=== PATIENT | female | born 1985 | race Caucasian/White ===

== ENCOUNTER 2017-03-26 21:10 | Emergency (ER) | payer BC, OTHER ==
--- NOTE | 2017-03-26 21:58 | ERPHSYRPT ---
- History of Present Illness Time Seen by Provider: 03/26/17 21:40 Source: patient Exam Limitations: clinical condition Patient Subjective Stated Complaint: abdominal cramping x 1 week intermittently. has had hx urinary problems. denies fever Triage Nursing Assessment: alert and oriented. no acute distress. abdomen soft.. states pain in lower abdomen that radiates to back. denies vaginal bleeding Physician History: PATIENT IS A -5, PARA-3, -1, LMP 12/29/2016, AT 12 WEEKS GESTATION COMPLAINS OF LOWER ABDOMINAL CRAMPING FOR 1 WEEK, DENIES VAGINAL BLEEDING OR PASSAGE OF TISSUE. DENIES DYSURIA, URGENCY OR HEMATURIA. Timing/Duration: week(s) Activites at Onset: none Quality: cramping Onset Location: pelvic pain Pain Radiation: none Severity of Pain-Max: mild Severity of Pain-Current: mild Prior abdominal problems: other (MISCARRIAGE) Sexual intercourse history: non-contributory Modifying Factors: Improves With: nothing Associated Symptoms: denies symptoms Allergies/Adverse Reactions: No Known Drug Allergies Allergy (Unverified 03/26/17 21:40) Home Medications: Vits W-Ca,Fe,FA(<1Mg) [] 1 each PO DAILY 03/26/17 [History] - Review of Systems Constitutional: No Fever, No Chills Eyes: No Symptoms Ears, Nose, & Throat: No Symptoms Respiratory: No Symptoms, No Cough, No Dyspnea Cardiac: No Symptoms, No Chest Pain, No Edema, No Syncope Abdominal/Gastrointestinal: Abdominal Pain, No Nausea, No Vomiting, No Diarrhea Genitourinary Symptoms: , No Dysuria Musculoskeletal: No Back Pain, No Neck Pain Skin: No Rash Neurological: No Dizziness, No Focal Weakness, No Sensory Changes Psychological: No Symptoms Endocrine: No Symptoms All Other Systems: Reviewed and Negative - Past Medical History Pertinent Past Medical History: Yes Female Reproductive Disorders: Other Other Medical History: lyme disease, loss at 5 months - Past Surgical History Past Surgical History: No - Social History Smoking Status: Never smoker Exposure to second hand smoke: No Drug Use: none Patient Lives Alone: No - Female History Hx Last Menstrual Period: december Hx Now: Yes Gestational Age: 12 weeks - Nursing Vital Signs Nursing Vital Signs: Initial Vital Signs Temperature 97.8 F 03/26/17 21:24 Pulse Rate 79 03/26/17 21:24 Respiratory Rate 18 03/26/17 21:24 Blood Pressure 112/72 03/26/17 21:24 O2 Sat by Pulse Oximetry 98 03/26/17 21:24 Pain Scale Pain Intensity 0 - Physical Exam General Appearance: no apparent distress, alert Eye Exam: PERRL/EOMI, eyes nml inspection Ears, Nose, Throat Exam: normal ENT inspection, TMs normal, pharynx normal, moist mucous membranes Neck Exam: normal inspection, non-tender, supple, full range of motion Respiratory Exam: normal breath sounds, lungs clear, No respiratory distress Cardiovascular Exam: regular rate/rhythm, normal heart sounds, normal peripheral pulses Gastrointestinal/Abdomen Exam: soft, normal bowel sounds (NONTENDER), No tenderness, No mass Pelvic Exam: normal external exam, other (UTERINE SIZE 11-12 WEEKS GESTATION) Back Exam: normal inspection, normal range of motion, No CVA tenderness, No vertebral tenderness Extremity Exam: normal inspection, normal range of motion, pelvis stable Neurologic Exam: alert, oriented x 3, cooperative, 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 tested, normal mood/affect, sensation nml, No motor deficits Skin Exam: normal color, warm, dry Lymphatic Exam: No adenopathy SpO2: 98 Oxygen Delivery: Room Air - Radiology Ultrasound Exam OB Ultrasound: discussed w/radiologist (INTRAUTERINE 12 WEEKS 2 DAYS, FHT 162) Ordered Tests: Active Orders 24 hr Category Date Time Status OB <14 WKS 1ST GESTATION [US] Stat Exams 03/26/17 21:59 Ordered HCG,QUALITATIVE URINE Stat Lab 03/26/17 21:45 Completed UA W/RFX UR CULTURE Stat Lab 03/26/17 21:45 Completed Lab/Rad Data: Laboratory Results 03/26/17 03/26/17 Range/Units 21:45 21:45 Ur Collection Type CLEAN CATCH Urine Color LT.YELLOW (YELLOW) Urine Appearance CLEAR (CLEAR) Urine pH 8.0 (5-6) Ur Specific [place] 1.010 (1.005-1.025) Urine Protein NEGATIVE (Negative) Urine Ketones NEGATIVE (NEGATIVE) Urine Blood NEGATIVE (0-5) Jose/ul Urine Nitrite NEGATIVE (NEGATIVE) Urine Bilirubin NEGATIVE (NEGATIVE) Urine Urobilinogen NORMAL (0-1) mg/dL Ur Leukocyte Esterase NEGATIVE (NEGATIVE) Urine Culture Reflexed NO (NO) Urine Glucose NEGATIVE (NEGATIVE) mg/dL Urine HCG, Qual POSITIVE (Negative) Specimen Received 03/26/17 3934 - Progress Counseled pt/family regarding: lab results, diagnosis, need for follow-up - Departure Time of Disposition: 00:35 Departure Disposition: Home Clinical Impression: , PELVIC PAIN Condition: Stable Critical Care Time: No Referrals: SHEA JIMENEZ NP [Primary Care Provider] - Additional Instructions: 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 TYLENOL EVERY 4 HOUR NEEDED FOR PAIN. RETURN TO EMERGENCY FOR ONSET OF VAGINAL BLEEDING OR INCREASING PAIN.
[2017-03-26 22:03] LABS: Appearance CLEAR (CLEAR); Glucose NEGATIVE (NEGATIVE); Leukocyte Esterase NEGATIVE (NEGATIVE); Nitrite NEGATIVE (NEGATIVE)
[2017-03-26 22:04] LABS: Bilirubin NEGATIVE (NEGATIVE); Blood NEGATIVE Ery/ul (0-5); Ketones NEGATIVE (NEGATIVE); Protein,Urine Dip NEGATIVE (Negative); Urobilinogen NORMAL mg/dL (0-1)
[2017-03-26 22:33] VITALS: PULSE 76
[2017-03-27 00:31] VITALS: O2SAT 98
[2017-03-27 00:35] VITALS: BP 116/82
--- NOTE | 2017-03-27 07:49 | XRAY ---
Indication: Cramping. History of miscarriage. Two-dimensional transabdominal early OB ultrasound was performed. Comparison: None There is a single viable intrauterine with mean crown-rump length measuring 5.78 cm corresponding to 12 weeks 2 days. heart rate 165 BPM. Posterior placenta is low lying. No abnormal subchorionic fluid collection. Cervical length measures 4.4 cm. 2.9 cm right ovary corpus luteal cyst. Remaining left and right ovaries unremarkable. No suspicious adnexal mass or free fluid. Impression: Single viable intrauterine measuring 12 weeks 2 days. Expected date confinement is October 06, 2017. Low-lying posterior placenta not unusual for early gestational age. Recommend follow-up later in the . Comment: Preliminary report was given.
== END 2017-03-27 00:41 | disposition home or self-care (01) ==
LOC: ED 21:10
DX: O26.891 Other specified pregnancy related conditions, first trimester (principal); Z3A.12 12 weeks gestation of pregnancy; R10.30 Lower abdominal pain, unspecified
CPT/HCPCS: 76801; 81002; 84703; 99283

== ENCOUNTER 2021-02-02 14:46 | Emergency (ER) | payer OTHER ==
[2021-02-02 14:59] VITALS: O2SAT 98
--- NOTE | 2021-02-02 15:14 | ERPHSYRPT ---
- History of Present Illness Source: patient Exam Limitations: no limitations Patient Subjective Stated Complaint: pt here for left ankle pain after twisiting it outside yesterday, Triage Nursing Assessment: pt alert, walked ;in with a limp, resp easy, skin w/d/p. pt has swelling to outer aspect of left ankle Physician History: 35 yo wf slipped and twisted her ankle in her yard last night. Pt denies other/previous injury. Method of Injury: fell Occurred: yesterday Quality: constant Severity of Pain-Max: moderate Severity of Pain-Current: mild Lower Extremities Pain: ankle: left Modifying Factors: Improves With: movement Associated Symptoms: snapping sensation, popping sensation Allergies/Adverse Reactions: No Known Drug Allergies Allergy (Verified 02/02/21 14:56) Home Medications: No Reportable Medications [No Reported Medications] 02/02/21 [History] Hx Tetanus, Diphtheria Vaccination/Date Given: No Hx Influenza Vaccination/Date Given: No Hx Pneumococcal Vaccination/Date Given: No Immunizations Up to Date: Yes Travel Risk - International Travel Have you traveled outside of the country in past 3 weeks: No - Coronavirus Screening Are you exhibiting any of the following symptoms?: No Close contact with a COVID-19 positive Pt in past 14-21 Days: No - Vaccine Status Have you recieved a Covid-19 vaccination: No - Review of Systems Constitutional: No Symptoms Eyes: No Symptoms Ears, Nose, & Throat: No Symptoms Respiratory: No Symptoms Cardiac: No Symptoms Abdominal/Gastrointestinal: No Symptoms Genitourinary Symptoms: No Symptoms Skin: No Symptoms Neurological: No Symptoms Psychological: No Symptoms Endocrine: No Symptoms Hematologic/Lymphatic: No Symptoms Immunological/Allergic: No Symptoms - Past Medical History Pertinent Past Medical History: No Female Reproductive Disorders: Other Other Medical History: lyme disease, loss at 5 months - Past Surgical History Past Surgical History: No - Social History Smoking Status: Never smoker Exposure to second hand smoke: No Drug Use: none Patient Lives Alone: No Significant Family History: no pertinent family hx - Female History Hx Last Menstrual Period: 3 weeks ago Hx Now: No - Nursing Vital Signs Nursing Vital Signs: Initial Vital Signs Temperature 97.2 F 02/02/21 14:57 Pulse Rate 87 02/02/21 14:57 Respiratory Rate 16 02/02/21 14:57 Blood Pressure 147/77 02/02/21 14:57 O2 Sat by Pulse Oximetry 98 02/02/21 14:57 Pain Scale Pain Intensity 4 Hypertensive - Physical Exam General Appearance: no apparent distress Eyes, Ears, Nose, Throat Exam: normal ENT inspection Neck Exam: normal inspection, non-tender, No Brudzinski, No Kernig's, No meningismus Cardiovascular/Respiratory Exam: normal breath sounds, regular rate/rhythm, heart sounds normal Gastrointestinal/Abdominal Exam: non-tender Back Exam: normal inspection Hips Exam: bilateral: non-tender, normal inspection, normal range of motion, no evidence of injury Legs Exam: bilateral leg: non-tender, normal inspection, normal range of motion, no evidence of injury Knees Exam: bilateral knee: non-tender, normal inspection, normal range of motion, no evidence of injury Ankle Exam: left ankle: bone tenderness (TTP lateral malleolus/Good pedal pulse, distal sensation, and capillary return), swelling (Mild L lateral malleolus) Foot Exam: bilateral foot: non-tender, normal inspection, normal range of motion, no evidence of injury Neuro/Tendon Exam: normal sensation, normal motor functions, normal tendon functions, responds to pain, no evidence tendon injury Mental Status Exam: alert, oriented x 3, cooperative Skin Exam: other (Chronic venous changes LLE) SpO2 Interpretation: normal SpO2: 98 O2 Delivery: Room Air - Course Nursing assessment & vital signs reviewed: Yes - Radiology Exams Ankle X-ray Interpretation: Interpreted by me (L ankle neg per ER read) Ordered Tests: Active Orders 24 hr Category Date Time Status Davon Bandage Application -[facility] STAT Care 02/02/21 15:21 Completed ANKLE (3 VIEWS) Stat Exams 02/02/21 Completed - Progress Progress Note: 02/02/21 15:21 Pt refuses IM Toradol Davon wrap L ankle per nursing/NVI Pt refuses crutches 02/02/21 19:31 XR later reviewed by Rad-no fx-dislocation Counseled pt/family regarding: lab results, diagnosis, need for follow-up, rad results - Departure Departure Disposition: Home Clinical Impression: Left ankle sprain Condition: Stable Critical Care Time: No Referrals: SHEA JIMENEZ, SCRAP METAL COLLECTOR [Primary Care Provider] - Follow up/PCP as directed Instructions: Ankle Sprain (DC) Additional Instructions: Davon wrap for 3-4 days Ice for 6-12 hours Motrin/Tylenol as needed for pain Weight bearing as tolerated
[2021-02-02 15:24] VITALS: BP 142/70; PULSE 82
--- NOTE | 2021-02-02 15:26 | XRAY ---
Indication: Pain and swelling. Comparison: None 3 view left ankle demonstrates mild anterolateral soft tissue swelling, tiny plantar heel spur, and tiny cuboid accessory ossicle. No other bony, articular, or soft tissue abnormalities.
== END 2021-02-02 15:54 | disposition home or self-care (01) ==
LOC: ED 14:46
DX: S93.402A Sprain of unspecified ligament of left ankle, initial encounter (principal); W01.0XXA Fall on same level from slipping, tripping and stumbling without subsequent striking against object, initial encounter; Y92.007 Garden or yard of unspecified non-institutional (private) residence as the place of occurrence of the external cause
CPT/HCPCS: 73610; 99283